=== PATIENT | female | born 1980 | race Caucasian/White ===

== ENCOUNTER → 2019-03-01 13:33 | Outpatient (CLI) | payer MEDICAID, SELFPAY ==
--- NOTE | 2019-03-01 13:40 | XR_ITS ---
XR KUB HISTORY: ITS.REASON: ACUTE FLANK PAIN ORDERING PHYSICIAN: Latosha Jaime APRN PATIENT AGE: 38 years COMPARISON: None FINDINGS: There is a moderate amount of retained colonic feces throughout the colon. There is an IUD in place. There are some gas-filled loops of small bowel also noted. No acute bony anomalies. No obvious renal or ureteral calculi however, the moderate amount of overlying feces could easily obscure a small stone IMPRESSION: Constipation
== END ==
PROVIDERS: PCP Nurse Practitioner Family; Visit Provider Nurse Practitioner Family
DX: R10.9 Unspecified abdominal pain (principal)
CPT/HCPCS: 74018

== ENCOUNTER → 2019-03-14 14:36 | Outpatient (CLI) | payer MEDICAID, SELFPAY ==
--- NOTE | 2019-03-14 14:44 | CT_ITS ---
CT abdomen pelvis wo con CLINICAL INDICATION: Acute right flank pain ITS.REASON: ACUTE FLANK PAIN ORDERING PHYSICIAN: Latosha Jaime APRN PATIENT AGE: 38 years COMPARISON: None TECHNIQUE: Axial images obtained with sagittal and coronal reformats. All CT scans at the facility use one or more dose reduction, viz: automated exposure control, ma/kV adjustment per patient size (including targeted exams where dose is matched to indication, i.e. head), or iterative reconstruction technique. PROCEDURE: Oral Contrast: None IV Contrast: None . FINDINGS: Lower thorax: There may be trace bilateral effusions The liver, gallbladder, pancreas and adrenal glands are unremarkable. There is mild splenomegaly at 13 cm There are punctate stones of both kidneys is a 2 mm stone in the lower pole of the left at 2 mm stone in the lower pole on the right. No hydronephrosis. No ureteral calculi. There is a moderate amount retained colonic feces. The appendix is not clearly delineated. No convincing evidence of appendicitis. There are multiple unopacified bowel loops present within the abdomen/pelvis which could obscure or mimic pathology. If symptoms persists, consider repeating exam with IV and oral contrast administration No pelvic mass abnormal fluid collection or focal inflammatory changes pelvis. There is an IUD in place. There is a small amount fluid in the pelvis. There is a zone of decreased density involving the superior aspect of the T11 vertebral body and to a lesser extent the inferior aspect of the T10 vertebral body. There is some minimal wedging of T11 There is some decrease in the disc space at that region. The paravertebral soft tissues appear somewhat prominent at this area as well. IMPRESSION: 1. Nonobstructing bilateral renal calculi 2. Focal zone of decreased density involving the superior aspect of T11 vertebral body and the inferior aspect of T10 vertebral body with decrease in the disc space and questionable increased soft tissue density in the paravertebral region. There is minimal wedging of T11. These findings raise a suspicion of spondylodiscitis. Suggest MRI of the lower thoracic spine without and with contrast for confirmation. 3. Moderate amount retained colonic feces. There are multiple unopacified bowel loops present within the abdomen/pelvis which could obscure or mimic pathology. If symptoms persists, consider repeating exam with IV and oral contrast administration 4. Nonobstructing bilateral renal calculi Significant findings called to Dr. Anthony on 03/14/2019 6:21 PM.
== END ==
PROVIDERS: PCP Family Medicine; Visit Provider Nurse Practitioner Family
DX: R10.9 Unspecified abdominal pain (principal)
CPT/HCPCS: 74176

== ENCOUNTER → 2019-03-15 12:33 | Outpatient (CLI) | payer MEDICAID, SELFPAY ==
[2019-03-15 13:27] LABS: Basophils % 0.2 % (0.1-2.0); Eosinophils % 0.1 % (0.1-12.0); Hematocrit 34.8 % (37.0-47.0); Hemoglobin 11.2 g/dL (12.2-16.2); Lymphocytes % 9.7 % (10-50); Mean Corpuscular HGB Conc 32.3 g/dL (31.8-35.4); Mean Corpuscular Hemoglobin 26.9 pg (27.0-31.2); Mean Corpuscular Volume 83.5 fl (81-99); Mean Platelet Volume 7.8 fl (7.4-10.4); Monocytes # 0.3 K/mm3 (0.1-1.0); Monocytes % 3.1 % (1.7-9.3); Neutrophils # 9.2 K/mm3 (1.8-7.8); Neutrophils % 86.9 % (37.0-80.0); Platelet Count 402 K/mm3 (142-424); Red Blood Count 4.16 M/mm3 (4.20-5.40); White Blood Count 10.6 K/mm3 (4.8-10.8)
[2019-03-15 13:30] LABS: MANUAL DIFFERENTIAL MANUAL DIFFERENTIAL (MANUAL DIFF)
[2019-03-15 13:49] LABS: Lymphocytes % 9 % (10-50); Monocytes % 2 % (2-9); Neutrophils % 89 % (42-76); Platelet Estimate Normal; Total Cells Counted 100
[2019-03-15 13:50] LABS: Hypochromasia 1+
[2019-03-15 14:08] LABS: Erythrocyte Sedimentation Rate 61 mm/hr (0-20)
== END ==
PROVIDERS: Visit Provider Family Medicine
DX: M86.9 Osteomyelitis, unspecified (principal)
CPT/HCPCS: 36415; 85007; 85025; 85651

== ENCOUNTER → 2019-04-29 08:31 | Outpatient (CLI) | payer MEDICAID, SELFPAY ==
--- NOTE | 2019-04-29 08:42 | US_ITS ---
US Kidney CLINICAL INDICATION: ITS.REASON: FLANK PAIN,RENAL CALCULI ORDERING PHYSICIAN: Latosha Jaime APRN PATIENT AGE: 39 years Comparison: None FINDINGS: Kidneys are are of normal size shape and position. No hydronephrosis or renal mass is evident. There are few scattered areas of increased echogenicity within the left kidney suggesting left nephrolithiasis. IMPRESSION: 1. Possible left nephrolithiasis. 2. Otherwise negative renal ultrasound
== END ==
PROVIDERS: PCP Family Medicine; Referring Provider Nurse Practitioner Family; Visit Provider Nurse Practitioner Family
DX: R10.9 Unspecified abdominal pain (principal); N20.0 Calculus of kidney
CPT/HCPCS: 76770

== ENCOUNTER 2021-03-30 08:59 | Emergency (ER) | payer MEDICAID, SELFPAY ==
[2021-03-30 09:09] VITALS: BP 142/99; PULSE 105; RESP 19; O2SAT 99; BMI 25.4
[2021-03-30 09:10] VITALS: BP 142/99; PULSE 105; RESP 19; TEMP 36.8; O2SAT 99; BMI 25.4
--- NOTE | 2021-03-30 09:23 | HMH.EDUTC ---
[facility] [place] Disposition Clinical Impression: Dental abscess Disposition: Home, Self-Care Condition on Discharge: Good Instructions: Tooth Abscess, Amoxicillin and Clavulanic Acid Additional Instructions: Take antibiotics as prescribed Call the Dentist and make appointment as soon as possible for further evaluation and examination Rinse your mouth every 2 hours with salt water. This will help keep the area clean. Gently brush your teeth twice a day with a soft tooth brush. This will help keep the area clean. Eat soft foods as directed. Soft foods may cause less pain. Examples include applesauce, yogurt, and cooked pasta. Ask your healthcare provider how long to follow this instruction. Apply a warm compress to your tooth or gum. Use a cotton ball or gauze soaked in warm water. Remove the compress in 10 minutes or when it becomes cool. Repeat 3 times a day. Follow up with Family Doctor if needed Straight to the ER if any life threatening symptoms Prescriptions: Amoxicillin [Amoxicillin 875MG Tab] 875 mg PO Q12H #14 tab Transmission Status: Received by [facility]/pharmacy #[id number] Referrals: Alisson Zamora MD [Primary Care Provider] - As needed Time of Disposition: 09:40 Medical Decision Making - Aaron Inquiry Pt receiving controlled substance: No Aaron was queried for this patient: No Vital Signs: 03/30/21 09:09 03/30/21 09:10 03/30/21 09:35 Temperature 98.2 F 98.2 F Temperature Source Oral Pulse Rate 105 H Pulse Rate [Left Radial] 105 H 105 H Respiratory Rate 19 19 19 Blood Pressure 142/99 H Blood Pressure [Right Arm] 142/99 H 142/99 H Blood Pressure Mean [Right Arm] 113 113 Blood Pressure Source [Right Arm] Automatic Cuff Automatic Cuff Blood Pressure Position [Right Arm] Sitting Sitting 02 Sat by Pulse Oximetry 99 99 Oxygen Delivery Method Room Air Room Air Medical Decision Narrative: Patient reports her face felt funny around the swelling initially said numb however reports tenderness when area palpated State that she can feel it when area is touched it just feels odd and swollen, no changes in speech no problems swallowing, no facial droop.swelling noted to right lower jaw area Discussed with patient that we could send her back to the ED and she declined at this time she is able to feel light and sharp touch just states it hurts and feels funny where it is so swollen [facility] UTC HPI - General Stated complaint: mouth swollen,face numb Time Seen by Provider: 03/30/21 09:23 Mode of Arrival: Ambulatory Source of Information: Patient Limitations: No Limitations Description of Symptoms (Recalled from Triage Doc. by RN): PATIENT C/O RIGHT LOWER FACIAL SWELLING THAT STARTED THIS WEEKEND AND WAS WORSE THIS MORNING WITH NUMBNESS TO HER UPPER LIP. STATES SHE DOES HAVE A COUPLE OF CAVITIES ON THAT SIDE HEENT Symptoms (Recalled from RN notes): Yes Resp Symptoms (Recalled from RN notes): No Skin Symptoms (Recalled from RN notes): No MS Symptoms (Recalled from RN notes): No Functional Status (Recalled from RN notes): WNL - History of Present Illness Provider Complaint: Patient states that she started having some dental pain in her right lower jaw area over the weekend and then noticed it was starting to swell. State that it has continued to get worse and thinks it may be where she had put some temp filling in two of her back teeth that she bought from the store States that it is so swollen that it is making her lower jaw area feel tingly so she came in - Related Data Home Medications Medication Instructions Recorded Confirmed buprenorphine 2 mg-naloxone 0.5 mg 2 film SUBLINGUAL DAILY 11/28/18 03/30/21 sublingual film Escitalopram Oxalate [Lexapro] 10 mg PO DAILY 03/30/21 03/30/21 Previous Rx's Medication Instructions Recorded Amoxicillin [Amoxicillin 875MG 875 mg PO Q12H #14 tab 03/30/21 Tab] Allergies Allergy/AdvReac Type Severity Reaction Status Date / Time No Known Allergies Allergy Verified
[2021-03-30 09:35] VITALS: BP 142/99; PULSE 105; RESP 19; TEMP 36.8; O2SAT 99
== END 2021-03-30 09:42 | disposition home or self-care (01) ==
PROVIDERS: Emergency Provider Nurse Practitioner; PCP Family Medicine
DX: K04.7 Periapical abscess without sinus (principal); K02.9 Dental caries, unspecified
CPT/HCPCS: 99202; G0463